=== PATIENT | female | born 1980 | race Caucasian/White ===

== ENCOUNTER → 2020-10-01 | Outpatient (CLI) | payer OTHER ==
[~2020-10-01] MED LIST: CLARITIN10 M2 PO; FENOFIBRATE145 MG PO; ISOSORBIDE MONO30 MG PO; METOPROLOL TART25 MG PO; NAPROXEN500 MG PO; NITROSTAT 0.40.4 MG SL; OMEPRAZOLE40 MG PO; ST. JOSEPH ASPI81 M1 PO
[2020-10-01 08:07] LABS: RED BLOOD COUNT 4.65 M/UL (4.00-5.10)
[2020-10-01 08:19] LABS: BUN/CREATININE RATIO 24 (0-10)
== END ==
LOC: CATH 07:24
PROVIDERS: Internal Medicine Cardiovascular Disease
DX: I25.118 Atherosclerotic heart disease of native coronary artery with other forms of angina pectoris (principal); I10 Essential (primary) hypertension; E78.00 Pure hypercholesterolemia, unspecified; F17.210 Nicotine dependence, cigarettes, uncomplicated; F41.9 Anxiety disorder, unspecified; M19.90 Unspecified osteoarthritis, unspecified site; Z91.040 Latex allergy status; Z79.82 Long term (current) use of aspirin; Z91.048 Other nonmedicinal substance allergy status; Z79.899 Other long term (current) drug therapy
CPT/HCPCS: 36415; 71045; 80048; 85025; 85610; 93005; 99152; C1769; C1887; C1894; J1644; J2250; J3010; J7040; Q9967